=== PATIENT | male | born 1960 | race Caucasian/White ===

== ENCOUNTER 2018-01-12 10:50 | Inpatient (IN) | payer MEDICAID ==
[2018-01-12] MEDS: SODIUM CHLORIDE 0.9% 1L BAG IV* (11:33)
[2018-01-12 11:36] LABS: ADD MAN DIFF? NO
[2018-01-12] MEDS: CEFTRIAXONE 1 GM/50 ML (PMX) 50 ML IVPB (11:38)
[2018-01-12 11:41] LABS: WHITE BLOOD COUNT 12.8 10^3/ul (4.8-10.8)
[2018-01-12 11:41] LABS: BASOPHILS % 0.2 % (0.0-2.0); HEMATOCRIT 43.6 % (42.0-52.0); HEMOGLOBIN 15.4 g/dl (14.0-18.0); LYMPHOCYTES # 1.4 10^3/ul (0.8-2.9); LYMPHOCYTES % 11.2 % (15.0-51.0); MEAN CORPUSCULAR HGB CONC 35.3 g/dl (32.0-37.0); MEAN CORPUSCULAR VOLUME 87.7 fl (82.0-101.0); MEAN PLATELET VOLUME 12.1 fl (7.4-10.4); MONOCYTE # 1.1 10^3/ul (0.3-0.9); MONOCYTES % 8.4 % (0.0-11.0); NEUTROPHIL # 10.1 10^3/ul (1.6-7.5); PLATELET COUNT 115 10^3/UL (140-415); RED BLOOD COUNT 4.97 10^6/ul (4.70-6.10); RED CELL DISTRIBUTION WIDTH 12.6 % (11.5-14.5)
[2018-01-12 12:00] LABS: ALANINE AMINOTRANSFERASE 29 IU/L (13-69); ALBUMIN 3.9 g/dl (3.3-4.9); ALBUMIN/GLOBULIN RATIO 0.95; ALKALINE PHOSPHATASE 75 IU/L (42-121); ANION GAP 17 (8-16); ASPARTATE AMINO TRANSFERASE 24 IU/L (15-46); BILIRUBIN,INDIRECT 1.9 mg/dl (0-1.1); BILIRUBIN,TOTAL 1.9 mg/dl (0.2-1.3); BLOOD UREA NITROGEN 16 mg/dl (7-20); CALCIUM 9.1 mg/dl (8.4-10.2); CARBON DIOXIDE 28 mmol/L (21-31); CHLORIDE 100 mmol/L (97-110); CREATININE 1.32 mg/dl (0.61-1.24); GLUCOSE 166 mg/dl (70-220); LIPASE 14 U/L (23-300); POTASSIUM 3.3 mmol/L (3.5-5.1); SODIUM 142 mmol/L (135-144)
[2018-01-12 12:02] LABS: PROTIME 15.4 Sec (11.9-14.9); PT RATIO 1.2
[2018-01-12 12:03] LABS: PARTIAL THROMBOPLASTIN TIME 30.4 Sec (25.0-35.0)
[2018-01-12 12:12] LABS: TROPONIN-I < 0.012 ng/ml (0.000-0.120)
[2018-01-12 12:21] LABS: ADD UMIC YES; UR ASCORBIC ACID 20 mg/dL (NEGATIVE); UR BACTERIA FEW /HPF (NONE SEEN); UR BILIRUBIN (Dip) NEGATIVE (NEGATIVE); UR BLOOD (Dip) 3+ mg/dL (NEGATIVE); UR CLARITY SLIGHTLY CLOUDY (CLEAR); UR COLOR YELLOW (YELLOW); UR GLUCOSE (Dip) NEGATIVE (NEGATIVE); UR KETONES (Dip) TRACE mg/dL (NEGATIVE); UR LEUKOCYTE ESTERASE (Dip) 2+ Leu/ul (NEGATIVE); UR MUCUS FEW /HPF (NONE SEEN); UR NITRITE (Dip) NEGATIVE (NEGATIVE); UR RBC 49 /HPF (0-5); UR SPECIFIC GRAVITY (Dip) 1.024 (1.003-1.030); UR TOTAL PROTEIN (Dip) 2+ mg/dl (NEGATIVE); UR UROBILINOGEN (Dip) 1+ mg/dL (NEGATIVE); UR WBC 72 /HPF (0-5)
[2018-01-12] MEDS: ACETAMINOPHEN 500 MG TAB PO (12:36)
[2018-01-12] MEDS: IBUPROFEN 600 MG TAB PO (13:58)
[2018-01-12 14:24] LABS: LACTIC ACID 1.3 mmol/L (0.5-2.0)
[2018-01-12] MEDS ORDERED: ACETAMINOPHEN 650 MG SUPP PR (14:30)
[2018-01-12] MEDS ORDERED: DOCUSATE SODIUM 100 MG CAP PO (14:30)
[2018-01-12] MEDS ORDERED: morphine 2 MG INJ IV (14:30)
[2018-01-12] MEDS ORDERED: MAGNESIUM HYDROXIDE 30ML CUP PO (14:30)
[2018-01-12] MEDS ORDERED: BISACODYL 10 MG SUPP PR (14:30)
[2018-01-12] MEDS ORDERED: NACL 0.9% 3 ML SYG IV (14:30)
[2018-01-12] MEDS ORDERED: HYDROCODONE/APAP (5/325) TAB PO (14:30)
[2018-01-12] MEDS ORDERED: ONDANSETRON 4 MG INJ IV (14:30)
[2018-01-12] MEDS: SOD CHLORIDE 0.9% 1,000 ML IV (16:03)
[2018-01-12 18:47] LABS: LACTIC ACID 1.3 mmol/L (0.5-2.0)
[2018-01-13] MEDS: SOD CHLORIDE 0.9% 1,000 ML IV ×3 (00:08→20:28)
[2018-01-13] MEDS: PANTOPRAZOLE 40 MG INJ IV (05:05)
[2018-01-13] MEDS: ACETAMINOPHEN 325 MG TAB PO ×3 (06:18→21:54)
[2018-01-13 07:06] LABS: ABNORMAL IP MESSAGE 1; HEMATOCRIT 37.1 % (42.0-52.0); MEAN CORPUSCULAR HEMOGLOBIN 30.7 pg (29.0-33.0); MEAN CORPUSCULAR VOLUME 87.5 fl (82.0-101.0); MEAN PLATELET VOLUME 11.8 fl (7.4-10.4); PLATELET COUNT 74 10^3/UL (140-415); POSITIVE DIFF @See below; RED BLOOD COUNT 4.24 10^6/ul (4.70-6.10); RED CELL DISTRIBUTION WIDTH 13.3 % (11.5-14.5)
[2018-01-13 07:06] LABS: WHITE BLOOD COUNT 9.2 10^3/ul (4.8-10.8)
[2018-01-13 07:14] LABS: ADD MAN DIFF? YES
[2018-01-13 07:34] LABS: ALANINE AMINOTRANSFERASE 32 IU/L (13-69); ALBUMIN 2.9 g/dl (3.3-4.9); ALKALINE PHOSPHATASE 70 IU/L (42-121); ANION GAP 15 (8-16); ASPARTATE AMINO TRANSFERASE 23 IU/L (15-46); BLOOD UREA NITROGEN 13 mg/dl (7-20); CALCIUM 8.1 mg/dl (8.4-10.2); CARBON DIOXIDE 22 mmol/L (21-31); CHLORIDE 105 mmol/L (97-110); CHOL/HDL RATIO 9.2 RATIO; CHOLESTEROL 120 mg/dl (100-200); CREATININE 1.06 mg/dl (0.61-1.24); GLUCOSE 129 mg/dl (70-220); HDL CHOLESTEROL 13 mg/dl (30-78); LDL CHOLESTEROL,CALCULATED 39 mg/dl; MAGNESIUM 1.4 mg/dl (1.7-2.5); PHOSPHORUS 1.6 mg/dl (2.5-4.9); POTASSIUM 3.4 mmol/L (3.5-5.1); SODIUM 139 mmol/L (135-144); TOTAL PROTEIN 6.1 g/dl (6.1-8.1); TRIGLYCERIDES 342 mg/dl (0-149)
[2018-01-13 07:40] LABS: FREE THYROXINE INDEX (Calc) 2.14 ug/ml (0.65-3.89); T3 UPTAKE 40.4 % (23.5-40.5); T4 (THYROXINE) 5.3 ug/dl (5.5-11.0)
[2018-01-13] MEDS: METOPROLOL (XL) 50 MG TAB PO (08:42)
[2018-01-13] MEDS: AMLODIPINE 10 MG TAB PO (08:43)
[2018-01-13] MEDS: HYDROCODONE/APAP (5/325) TAB PO ×2 (08:43→17:27)
[2018-01-13 09:02] LABS: HEMOGLOBIN A1C 5.8 % (0-5.9)
[2018-01-13 09:55] LABS: BAND NEUTROPHILS #M 1.4 10^3/ul (0.0-0.6); BAND NEUTROPHILS % (M) 16 % (0-4); GIANT THROMBO% (M) 2 % (0-0); LYMPHOCYTES #M 1.4 10^3/ul (0.8-2.9); LYMPHOCYTES % (M) 16 % (15-51); MONOCYTE #M 0.4 10^3/ul (0.3-0.9); MONOCYTES % (M) 5 % (0-11); PLATELET ESTIMATE SIG DECREASED; POIKILOCYTOSIS 1+ (0-0); REACTIVE LYMPHOCYTES #M 0.5 10^3/ul (0.0-0.0); REACTIVE LYMPHOCYTES% (M) 6 % (0-0); SEG NEUT #M 5.4 10^3/ul (1.6-7.5); SEGMENTED NEUTROPHILS (M) % 57 % (39-77); SMUDGE%M 4 % (0-0)
[2018-01-13] MEDS: CEFTRIAXONE 2 GM/50 ML (PMX) 50 ML IVPB (10:40)
[2018-01-13 13:05] LABS: PROSTATE SPECIFIC ANTIGEN 57.5 ng/ml (0.0-4.0)
[2018-01-13] MEDS: TAMSULOSIN (SR) 0.4 MG CAP PO (20:27)
[2018-01-14] MEDS: PANTOPRAZOLE 40 MG INJ IV (05:31)
[2018-01-14] MEDS: ACETAMINOPHEN 325 MG TAB PO ×3 (05:32→20:24)
[2018-01-14] MEDS: SOD CHLORIDE 0.9% 1,000 ML IV ×2 (05:32→16:21)
[2018-01-14 06:52] LABS: ADD MAN DIFF? NO
[2018-01-14 07:01] LABS: ABNORMAL IP MESSAGE 1; BASOPHILS % 0.2 % (0.0-2.0); EOSINOPHILS % 0.3 % (0.0-7.0); HEMATOCRIT 37.3 % (42.0-52.0); HEMOGLOBIN 13.1 g/dl (14.0-18.0); LYMPHOCYTES # 1.4 10^3/ul (0.8-2.9); LYMPHOCYTES % 15.5 % (15.0-51.0); MEAN CORPUSCULAR HEMOGLOBIN 30.5 pg (29.0-33.0); MEAN CORPUSCULAR HGB CONC 35.1 g/dl (32.0-37.0); MEAN CORPUSCULAR VOLUME 86.9 fl (82.0-101.0); MEAN PLATELET VOLUME 11.9 fl (7.4-10.4); MONOCYTE # 0.8 10^3/ul (0.3-0.9); MONOCYTES % 9.2 % (0.0-11.0); NEUTROPHIL # 6.8 10^3/ul (1.6-7.5); NEUTROPHILS % 73.7 % (39.0-77.0); PLATELET COUNT 94 10^3/UL (140-415); POSITIVE DIFF @See below; RED BLOOD COUNT 4.29 10^6/ul (4.70-6.10); RED CELL DISTRIBUTION WIDTH 13.4 % (11.5-14.5)
[2018-01-14 07:01] LABS: WHITE BLOOD COUNT 9.2 10^3/ul (4.8-10.8)
[2018-01-14 07:23] LABS: ANION GAP 15 (8-16); BLOOD UREA NITROGEN 13 mg/dl (7-20); CALCIUM 8.1 mg/dl (8.4-10.2); CARBON DIOXIDE 22 mmol/L (21-31); CHLORIDE 106 mmol/L (97-110); GLUCOSE 138 mg/dl (70-220); POTASSIUM 3.3 mmol/L (3.5-5.1); SODIUM 140 mmol/L (135-144)
[2018-01-14] MEDS: METOPROLOL (XL) 50 MG TAB PO (08:39)
[2018-01-14] MEDS: AMLODIPINE 10 MG TAB PO (08:39)
[2018-01-14] MEDS: CEFTRIAXONE 2 GM/50 ML (PMX) 50 ML IVPB (11:44)
[2018-01-14 14:01] LABS: MAGNESIUM 1.7 mg/dl (1.7-2.5)
[2018-01-14] MEDS: POTASSIUM CHLORIDE (SR) 20 MEQ TAB PO (14:15)
[2018-01-14] MEDS: TAMSULOSIN (SR) 0.4 MG CAP PO (20:22)
[2018-01-14] MEDS: FISH OIL 1,000 MG CAP PO (20:22)
[2018-01-15] MEDS: SOD CHLORIDE 0.9% 1,000 ML IV ×2 (02:08→10:18)
[2018-01-15] MEDS: PANTOPRAZOLE 40 MG INJ IV (05:48)
[2018-01-15 07:07] LABS: ADD MAN DIFF? NO
[2018-01-15 07:14] LABS: WHITE BLOOD COUNT 7.4 10^3/ul (4.8-10.8)
[2018-01-15 07:14] LABS: BASOPHILS % 0.3 % (0.0-2.0); EOSINOPHILS # 0.1 10^3/ul (0.0-0.5); EOSINOPHILS % 0.9 % (0.0-7.0); HEMATOCRIT 34.3 % (42.0-52.0); HEMOGLOBIN 12.2 g/dl (14.0-18.0); LYMPHOCYTES # 1.4 10^3/ul (0.8-2.9); LYMPHOCYTES % 18.9 % (15.0-51.0); MEAN CORPUSCULAR HEMOGLOBIN 31.4 pg (29.0-33.0); MEAN CORPUSCULAR HGB CONC 35.6 g/dl (32.0-37.0); MEAN CORPUSCULAR VOLUME 88.2 fl (82.0-101.0); MEAN PLATELET VOLUME 11.6 fl (7.4-10.4); MONOCYTE # 0.9 10^3/ul (0.3-0.9); MONOCYTES % 12.6 % (0.0-11.0); NEUTROPHIL # 4.9 10^3/ul (1.6-7.5); NEUTROPHILS % 66.5 % (39.0-77.0); PLATELET COUNT 105 10^3/UL (140-415); RED BLOOD COUNT 3.89 10^6/ul (4.70-6.10); RED CELL DISTRIBUTION WIDTH 13.2 % (11.5-14.5)
[2018-01-15 08:35] LABS: MAGNESIUM 1.9 mg/dl (1.7-2.5)
[2018-01-15 08:35] LABS: PHOSPHORUS 2.1 mg/dl (2.5-4.9)
[2018-01-15 08:40] LABS: ANION GAP 13 (8-16); BLOOD UREA NITROGEN 11 mg/dl (7-20); CALCIUM 8.4 mg/dl (8.4-10.2); CARBON DIOXIDE 26 mmol/L (21-31); CHLORIDE 107 mmol/L (97-110); CREATININE 0.95 mg/dl (0.61-1.24); GLUCOSE 127 mg/dl (70-220); POTASSIUM 3.7 mmol/L (3.5-5.1); SODIUM 142 mmol/L (135-144)
[2018-01-15] MEDS: METOPROLOL (XL) 50 MG TAB PO (08:46)
[2018-01-15] MEDS: AMLODIPINE 10 MG TAB PO (08:46)
[2018-01-15] MEDS: FISH OIL 1,000 MG CAP PO ×2 (08:46→20:48)
[2018-01-15] MEDS: TAMSULOSIN (SR) 0.4 MG CAP PO ×2 (08:55→20:48)
[2018-01-15] MEDS: CEFTRIAXONE 2 GM/50 ML (PMX) 50 ML IVPB (10:17)
[2018-01-15] MEDS: POTASSIUM PHOSPHATE 15 MM in SOD CHLORIDE 0.9% 250 ML IVPB (10:50)
[2018-01-15] MEDS: CIPROFLOXACIN 500 MG TAB PO (18:04)
[2018-01-16] MEDS: CIPROFLOXACIN 500 MG TAB PO ×2 (05:26→17:26)
[2018-01-16] MEDS: PANTOPRAZOLE 40 MG INJ IV (05:26)
[2018-01-16 06:48] LABS: ADD MAN DIFF? NO
[2018-01-16 07:00] LABS: WHITE BLOOD COUNT 6.2 10^3/ul (4.8-10.8)
[2018-01-16 07:00] LABS: BASOPHILS % 0.5 % (0.0-2.0); EOSINOPHILS # 0.1 10^3/ul (0.0-0.5); EOSINOPHILS % 1.5 % (0.0-7.0); HEMOGLOBIN 12.3 g/dl (14.0-18.0); LYMPHOCYTES # 1.6 10^3/ul (0.8-2.9); LYMPHOCYTES % 26.1 % (15.0-51.0); MEAN CORPUSCULAR HEMOGLOBIN 31.1 pg (29.0-33.0); MEAN CORPUSCULAR HGB CONC 35.1 g/dl (32.0-37.0); MEAN CORPUSCULAR VOLUME 88.6 fl (82.0-101.0); MEAN PLATELET VOLUME 11.7 fl (7.4-10.4); MONOCYTE # 0.9 10^3/ul (0.3-0.9); NEUTROPHIL # 3.5 10^3/ul (1.6-7.5); NEUTROPHILS % 56.3 % (39.0-77.0); PLATELET COUNT 114 10^3/UL (140-415); RED BLOOD COUNT 3.95 10^6/ul (4.70-6.10); RED CELL DISTRIBUTION WIDTH 13.6 % (11.5-14.5)
[2018-01-16 07:37] LABS: MAGNESIUM 1.6 mg/dl (1.7-2.5)
[2018-01-16 07:37] LABS: PHOSPHORUS 3.4 mg/dl (2.5-4.9)
[2018-01-16 07:40] LABS: ANION GAP 11 (8-16); BLOOD UREA NITROGEN 8 mg/dl (7-20); CALCIUM 8.6 mg/dl (8.4-10.2); CARBON DIOXIDE 26 mmol/L (21-31); CHLORIDE 106 mmol/L (97-110); CREATININE 0.92 mg/dl (0.61-1.24); GLUCOSE 109 mg/dl (70-220); SODIUM 140 mmol/L (135-144)
[2018-01-16] MEDS: FISH OIL 1,000 MG CAP PO ×2 (08:48→20:35)
[2018-01-16] MEDS: METOPROLOL (XL) 50 MG TAB PO (08:49)
[2018-01-16] MEDS: AMLODIPINE 10 MG TAB PO (08:49)
[2018-01-16] MEDS: TAMSULOSIN (SR) 0.4 MG CAP PO ×2 (08:49→20:35)
[2018-01-16] MEDS: POTASSIUM CHLORIDE (SR) 20 MEQ TAB PO (10:33)
[2018-01-16] MEDS: MAGNESIUM SULFATE 2 GM/50 ML 50 ML IVPB (10:34)
[2018-01-16] MEDS ORDERED: morphine LIQ (10 MG/5 ML) CUP PO (17:30)
[2018-01-17 05:49] LABS: ADD MAN DIFF? NO
[2018-01-17 05:56] LABS: BASOPHILS % 0.4 % (0.0-2.0); EOSINOPHILS # 0.1 10^3/ul (0.0-0.5); EOSINOPHILS % 1.5 % (0.0-7.0); HEMATOCRIT 34.5 % (42.0-52.0); HEMOGLOBIN 11.9 g/dl (14.0-18.0); LYMPHOCYTES % 27.7 % (15.0-51.0); MEAN CORPUSCULAR HEMOGLOBIN 31.3 pg (29.0-33.0); MEAN CORPUSCULAR HGB CONC 34.5 g/dl (32.0-37.0); MEAN CORPUSCULAR VOLUME 90.8 fl (82.0-101.0); MEAN PLATELET VOLUME 11.8 fl (7.4-10.4); MONOCYTE # 0.9 10^3/ul (0.3-0.9); MONOCYTES % 12.6 % (0.0-11.0); NEUTROPHIL # 4.2 10^3/ul (1.6-7.5); NEUTROPHILS % 56.7 % (39.0-77.0); PLATELET COUNT 109 10^3/UL (140-415); POSITIVE DIFF @See below; RED CELL DISTRIBUTION WIDTH 14.2 % (11.5-14.5)
[2018-01-17 05:56] LABS: WHITE BLOOD COUNT 7.3 10^3/ul (4.8-10.8)
[2018-01-17] MEDS: CIPROFLOXACIN 500 MG TAB PO (06:00)
[2018-01-17] MEDS: PANTOPRAZOLE 40 MG INJ IV (06:00)
[2018-01-17 06:16] LABS: ANION GAP 12 (8-16); BLOOD UREA NITROGEN 9 mg/dl (7-20); CALCIUM 8.6 mg/dl (8.4-10.2); CARBON DIOXIDE 29 mmol/L (21-31); CHLORIDE 105 mmol/L (97-110); CREATININE 0.95 mg/dl (0.61-1.24); GLUCOSE 109 mg/dl (70-220); POTASSIUM 3.7 mmol/L (3.5-5.1); SODIUM 142 mmol/L (135-144)
[2018-01-17 06:38] LABS: PHOSPHORUS 3.8 mg/dl (2.5-4.9)
[2018-01-17 06:38] LABS: MAGNESIUM 1.7 mg/dl (1.7-2.5)
[2018-01-17] MEDS: TAMSULOSIN (SR) 0.4 MG CAP PO (08:33)
[2018-01-17] MEDS: FISH OIL 1,000 MG CAP PO (08:33)
[2018-01-17] MEDS: AMLODIPINE 10 MG TAB PO (08:34)
[2018-01-17] MEDS: METOPROLOL (XL) 50 MG TAB PO (08:34)
== END 2018-01-17 11:45 | disposition home or self-care (01) | DRG 872 ==
LOC: E/R 10:50 → MS1 01-16 22:10 → TEL 12:50
DX: A41.9 Sepsis, unspecified organism (principal); N39.0 Urinary tract infection, site not specified; N17.9 Acute kidney failure, unspecified; N13.8 Other obstructive and reflux uropathy; I10 Essential (primary) hypertension; E66.9 Obesity, unspecified; Z68.37 Body mass index [BMI] 37.0-37.9, adult; E78.5 Hyperlipidemia, unspecified; E87.6 Hypokalemia; N40.1 Benign prostatic hyperplasia with lower urinary tract symptoms; R33.8 Other retention of urine
CPT/HCPCS: 36415; 71045; 74176; 80048; 80053; 80061; 81001; 83036; 83605; 83690; 83735; 84100; 84153; 84154; 84436; 84443; 84479; 84484; 85025; 85610; 85730; 87040; 87086; 93005; 96365; 99285-25